=== PATIENT | female | born 1980 | race Caucasian/White ===

== ENCOUNTER 2025-10-09 00:40 | Emergency (ER) | payer OTHER, SELFPAY ==
[2025-10-09 00:48] VITALS: BP 100/72
[2025-10-09 01:17] VITALS: BP 110/63
[2025-10-09 02:33] VITALS: BP 99/65
[2025-10-09 02:42] LABS: Hematocrit 35.9 % (37.0-47.0); Hemoglobin 12.0 g/dL (12.0-16.0); Mean Corp Hgb Conc. 33.4 g/dL (33.0-37.0); Mean Corpuscular Volume 90.2 fL (81.0-99.0); Nucleated Red Blood Cells % 0 %; Platelet Count 221 10^3/uL (130-400); Red Cell Dist. Width 11.3 % (11.5-14.5)
[2025-10-09 02:57] LABS: HCG, Serum Qualitative Screen Negative
[2025-10-09 03:01] LABS: ALT (SGPT) 31 U/L (0-35); AST (SGOT) 40 U/L (14-36); Albumin 3.9 g/dl (3.5-5.0); Alkaline Phosphatase 63 U/L (38-126); Blood Urea Nitrogen 17 mg/dl (7-17); Calcium 9.1 mg/dl (8.4-10.2); Carbon Dioxide 26 mmol/L (22-30); Chloride 107 mmol/L (98-107); Glucose 98 mg/dl (70-99); Potassium 4.4 mmol/L (3.5-5.1); Sodium 136 mmol/L (135-145); Total Protein 6.8 g/dl (6.3-8.2); eGFR > 60.00
[2025-10-09 03:11] LABS: Troponin I 0.028 ng/ml
--- NOTE | 2025-10-09 03:51 | ED.GENMED ---
History of Present Illness
General
Chief Complaint: Cardiac Symptoms
Source: patient and spouse
Exam Limitations: none
Time Seen by Provider: 10/09/25 01:59
Nursing documentation reviewed up to this point in time: agreed with
History of Present Illness
History of Present Illness:
The patient is a 45-year-old female who presented with palpitations and an elevated heart rate that was recorded by her Apple Watch as being 190 beats per minute. She reported the onset an hour prior to presentation, describing this episode as
particularly concerning and unlike previous ones because it awakened her from sleep. She attempted various maneuvers to alleviate the symptoms, including changing positions, laying down, placing water on her face, and deep breathing. Despite these
efforts, the heart rate remained elevated. She denies experiencing chest pain, shortness of breath, dizziness, or sweating during the episode. Similar episodes have occurred, albeit infrequently, approximately once every six months, typically after
sudden changes in position, such as rapidly standing and generally only lasts for a second or 2 and then resolves. Sarah's episode persisted for more than an hour even up to arrival to the ED but as soon as she lied down to have EKG performed,
she felt improved and initial EKG shows normal sinus rhythm.
No previous evaluations for tachycardia, palpitations.
She denies risk of , last menstrual period September 16.
Her only daily medication is sertraline, vitamins.
She denies recent travel, no leg pain or swelling. No recent URI or fever.
Past History
Past History
ED Past Medical History: Psychiatric (Anxiety)
ED Past Surgical History: Appendectomy and Gynecological (Right breast lumpectomy-benign finding.)
Social History
Tobacco: Non-smoker
Alcohol: None
Drug: None
Personal:
Living: with family
Family History
Family History: Other (Noncontributory)
Phy Exam
Physical Exam
Physical Exam:
GENERAL: 45-year-old woman appears her stated age, bright and alert, pleasant, appears in no acute distress. is accompanying.
EYE: anicteric
NECK: Supple, nontender, no meningismus, no significant adenopathy. No thyroidomegaly.
ENT: posterior pharynx is clear, oral mucosa is moist. TM clear b/l, nares patent.
CARDIAC: Regular rate and rhythm. no murmur.
LUNGS: Clear breath sounds bilaterally, no acute respiratory distress, no wheezes/rales/rhonchi
ABDOMEN: Soft, nondistended, without focal tenderness
NEUROLOGICAL: Alert and oriented x3, no focal neuro deficits.
SKIN: Warm and dry, normal color, skin intact. No rash.
MUSCULOSKELETAL: No C/C/E. peripheral pulses are full and equal b/l. No palpable tenderness.
PSYCH: Normal and appropriate interaction.
Course
Orders/Labs/Results
Orders:
Orders
10/09/25 00:41
ECG [Electrocardiogram (*1)] Urgent
Reason for Study: Tachycardia
EKG- Treatment ONCE
10/09/25 02:14
Test Result ONCE
10/09/25 02:31
Complete Blood Count/With Diff Urgent
Comprehensive Metabolic Panel Urgent
Free T4 Urgent
HCG, Serum Qualitative Screen Urgent
TSH Reflex To Free T4 Urgent
Troponin I Urgent
10/09/25 04:29
Troponin I Urgent
10/09/25 04:39
Ibuprofen [Motrin] 600 mg PO NOW STA
Abnormal Lab Results
10/09/25 10/09/25
02:31 04:29
RBC 3.98 L 10^6/uL
(4.20-5.40)
Hct 35.9 L %
(37.0-47.0)
RDW 11.3 L %
(11.5-14.5)
Absolute Neuts (auto) 7.2 H 10^3/uL
(1.4-6.5)
Absolute Monos (auto) 0.8 H 10^3/uL
(0.1-0.6)
Lymphocytes % 17.2 L %
(20.5-51.1)
AST 40 H U/L
(14-36)
Troponin I 0.038 H* D ng/ml
TSH (Reflex) 5.13 H uIU/ml
(0.47-4.68)
10/09/25 02:31
10/09/25 02:31
Vital Signs
Initial and Last Documented VS:
Initial Vital Signs
Temp Pulse Resp BP Pulse Ox
98.4 F 79 18 100/72 100
10/09/25 00:48 10/09/25 00:48 10/09/25 00:48 10/09/25 00:48 10/09/25 00:48
Last Documented Vital Signs
Temp Pulse Resp BP Pulse Ox
98.4 F 69 10 110/61 100
10/09/25 00:48 10/09/25 04:30 10/09/25 04:30 10/09/25 04:28 10/09/25 03:56
MDM/Problems Addressed
Differential Diagnosis Includes:
The Differential Diagnosis includes, in no particular order and is not limited to:
1. Paroxysmal supraventricular tachycardia
2. Atrial fibrillation
3. Hyperthyroidism
4. Anxiety-related tachycardia
5. Electrolyte imbalance
6. Dehydration
7. Sinus tachycardia
8. Atrial flutter
9. Ventricular tachycardia
10. Acute coronary syndrome
MDM/Problems Addressed:
Acute palpitations with elevated heart rate noted on Apple watch.
Currently asymptomatic and initial EKG shows normal sinus rhythm. Borderline incomplete right bundle branch block otherwise unremarkable. No old EKG to compare but there is a prior rhythm strip, lead II from January 2021 shows very similar
incomplete right bundle branch block.
Monitor shows normal sinus rhythm without ectopy.
Concern for tacky arrhythmia that promptly resolved upon arrival to the ED.
Will check labs including TSH.
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
Chronic conditions affecting care: Psychiatric illness (Anxiety)
*Pulse Oximetry
SaO2: 100
Oxygen Mode of Delivery: Room air
Patient hypoxic: no
*EKG
Interpreted by ED Provider?: Yes
Interpretation: normal
Comparison EKG: no comparison EKG present
Rate: normal
Rhythm: sinus
[place]: normal axis
Interval: normal interval
QRS Pattern: right bundle branch block (Incomplete right bundle branch block)
Ischemia: no ischemia
*Rejogger Interpretation
Rate: normal
Interpretation: normal
Rhythm: sinus
*Critical Care Note
Total Time (30-74mins, 75-104mins- exclusive of procedures): Not Applicable
Update Note
Update Note:
05:55
Patient remains comfortable, asymptomatic.
Monitor shows normal sinus rhythm.
Initial labs unremarkable save for minimally elevated TSH with normal free T4.
Initial troponin borderline elevated 0.028. Upon repeat 0.038. Likely mild bump in troponin related to a tacky arrhythmia such as SVT.
Case discussed with cardiology, Dr. Chuckie Deal. Recommend initiation of low-dose beta-toshia and discharged to home with follow-up in cardiology office.
ED Attending Note
-
Portions of this chart may have been created with voice recognition software.� Occasional wrong word or��sound alike� substitutions may have occurred due to the inherent limitations of voice recognition software.
Discharge Plan
Departure
Patient Disposition: Home (Routine Discharge)
Date of Disposition: 10/09/25
Time of Disposition: 06:04
Patient with high blood pressure during this ER visit?: No
Condition: Good
Discharge Problem:
Tachyarrhythmia
Instructions: Tachycardia, Palpitations
Prescriptions:
New
metoprolol succinate 25 mg tablet extended release 24 hr
12.5 mg PO DAILY Qty: 30 0RF
No Action
ibuprofen 200 MG tablet
400 - 600 mg PO BIDPRN PRN (Reason: mild pain)
magnesium 200 MG tablet
200 mg PO DAILY
multivitamin with folic acid [Tab-A-Lucian] 1 TABLET tablet
1 tab PO DAILY
polyethylene glycol 3350 17 GRAMS powder in packet
17 grams PO DAILYPRN PRN (Reason: constipation) Qty: 1 0RF
acetaminophen [Tylenol Extra Strength] 500 MG tablet
1,000 mg PO Q6HPRN PRN (Reason: mild pain) Qty: 1 0RF
amoxicillin-pot clavulanate 1 TABLET tablet
1 tab PO Q12 Qty: 5 0RF
oxycodone 5 MG tablet
5 mg PO Q4HPRN PRN (Reason: breakthrough/severe pain) Qty: 5 0RF
Referrals:
Cori Amor DO [Family Provider, Family Practice]
Neno Deal MD [Active, Cardiology] - Call in 1-3 days for appt
Interventions
Interventions:
*Risk Screen - Suicide Last Done: 10/09/25 00:51
*General Assessment Last Done: 10/09/25 00:51
*Neglect/Abuse Screening Last Done: 10/09/25 00:51
*ED- Fall Risk Assessment Last Done: 10/09/25 00:51
*ED COVID-19 Vaccine History Last Done: 10/09/25 00:51
*ED Influenza Vaccine History Last Done: 10/09/25 00:51
ED- Pulmonary Assessment Last Done: 10/09/25 01:20
ED- Cardiac Assessment Last Done: 10/09/25 01:20
Discharge Date and Time
Print Language: KITTITIAN
[2025-10-09 04:28] VITALS: BP 110/61
[2025-10-09] MEDS: MOTRIN 600 MG PO (04:52)
[2025-10-09 05:24] LABS: Troponin I 0.038 ng/ml
[2025-10-09 06:20] VITALS: BP 105/59
== END 2025-10-09 06:24 | disposition home or self-care (01) ==
LOC: EMR 00:40
PROVIDERS: EMERGENCY PHYSICIAN Emergency Medicine; FAMILY PHYSICIAN Family Medicine
DX: R00.0 Tachycardia, unspecified (principal); I45.10 Unspecified right bundle-branch block; F41.9 Anxiety disorder, unspecified; Z79.899 Other long term (current) drug therapy
CPT/HCPCS: 99284; 80053; 84439; 84443; 84484; 84703; 85025; 93005

== ENCOUNTER → 2025-11-03 13:47 | Outpatient (REF) | payer OTHER, SELFPAY | LOC: HWRCS 13:47 | PROVIDERS: ATTENDING PHYSICIAN Internal Medicine Cardiovascular Disease; FAMILY PHYSICIAN Family Medicine | DX: R00.0 Tachycardia, unspecified (principal) | CPT/HCPCS: 93306 ==